=== PATIENT | female | born 1990 | race Caucasian/White ===

== ENCOUNTER 2020-03-23 11:15 | Outpatient (CLI) | payer SELFPAY | END 2020-03-23 11:16 | disposition EMS.NT | LOC: EMS 11:15 | PROVIDERS: ATTEND Surgery | DX: F41.9 Anxiety disorder, unspecified (principal); R42 Dizziness and giddiness; R53.1 Weakness ==

== ENCOUNTER 2021-07-19 08:00 | Outpatient (CLI) | payer OTHER | END 2021-07-19 23:59 | LOC: LAB.N 08:00 | PROVIDERS: ATTEND Physician Assistant | DX: R07.0 Pain in throat (principal); Z20.822 Contact with and (suspected) exposure to COVID-19 ==

== ENCOUNTER 2021-11-20 12:45 | Outpatient (CLI) | payer OTHER ==
--- NOTE | 2021-11-20 17:02 | Ultrasound Report ---
PROCEDURE: OB First Trimester INDICATIONS: SUPERVISION OF OUTSIDE/PRIOR DATING DATA: Last menstrual period (LMP): Unknown. LMP-based estimated date of delivery (SUJATHA): Not applicable. First dating scan (date and location): 11/20/2021. Estimated date of delivery (SUJATHA) from first dating scan: 06/15/2022. TECHNIQUE: Real-time scanning was performed of the fetus and maternal pelvic organs, with image documentation. COMPARISON: None FINDINGS: A single living intrauterine gestation is present with a heart rate of [address] ntation is posterior. Amniotic fluid is within normal limits. [place]-rump length of 36 mm correspondin g to a 10 week 3 day gestation. Measurement variability in dating: +/- 4 weeks by LMP, +/- 7 days by mean sac diameter (use before 6 weeks gestation if crown-rump length not able to be measured), +/- 5 days by crown-rump length (6-12 weeks gestation). Maternal organs: Ovaries left sided corpus luteal cyst is present.. IMPRESSION: Single living intrauterine gestation. Reviewed by: Candida Marcum MD on 11/20/2021 5:00 PM PDT Approved by: Candida Marcum MD on 11/20/2021 5:00 PM PDT Station ID: [id number]
== END 2021-11-20 12:46 | disposition home or self-care (01) ==
LOC: DI 12:45
PROVIDERS: ATTEND Obstetrics & Gynecology
DX: Z34.81 Encounter for supervision of other normal pregnancy, first trimester (principal)